=== PATIENT | female | born 2000 | race Caucasian/White ===

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

== ENCOUNTER → 2020-01-09 | Outpatient (CLI) | payer OTHER | LOC: BHSO 14:49 | DX: F41.1 Generalized anxiety disorder (principal) | CPT/HCPCS: G0463 ==